=== PATIENT | male | born 1995 | race Caucasian/White ===

== ENCOUNTER 2020-12-15 13:45 | Emergency (ER) | payer MEDICAID, OTHER ==
[~2020-12-15] VITALS: Ht 170.2 cm; Wt 90.9 kg
[~2020-12-15 13:45] MED LIST: NO HOME MEDS
[2020-12-15 14:40] LABS: CLARITY,URINE SLIGHTLY CLOUDY (Clear); COLOR,URINE YELLOW (Yellow); GLUCOSE, URINE NEGATIVE (Neg); KETONES,URINE NEGATIVE (Neg); LEUKOCYTE ESTERASE ,URINE NEGATIVE (Neg); NITRITES, URINE NEGATIVE (Neg); OCCULT BLOOD,URINE NEGATIVE (Neg); PH,URINE 7.5 (4.8-8.0); PROTEIN,URINE NEGATIVE (Neg); UROBILINOGEN,URINE 0.2 E.U/dL (0.2-1.0)
[2020-12-15 14:42] LABS: UA COLLECTION TYPE VOIDED
[2020-12-15 14:48] LABS: BACTERIA,URINE FEW /HPF (Neg); MUCUS STRANDS FEW /LPF (Neg); RBC,URINE 0-2 /HPF (0-2); SQUAMOUS EPITHELIAL CELL,UR FEW /LPF (FEW); WBC,URINE 0-4 /HPF (0-4)
[2020-12-15 14:50] LABS: AMORPHOUS PHOSPHATES 1+
[2020-12-15 14:55] VITALS: BP 128/80
== END 2020-12-15 15:56 | disposition home or self-care (01) ==
LOC: ER 13:46
DX: N43.3 Hydrocele, unspecified (principal); N45.1 Epididymitis; N50.811 Right testicular pain; F32.9 Major depressive disorder, single episode, unspecified; Z88.1 Allergy status to other antibiotic agents
CPT/HCPCS: 76870; 81001; 93976; 99284